=== PATIENT | female | born 1975 | race Caucasian/White ===

== ENCOUNTER → 2017-07-09 | Outpatient (CLI) | payer OTHER ==
[~2017-07-09] MED LIST: Advil200 M1 PO; Cod Liver Oil1 EAC2; Mirena1 EACH VG
[2017-07-11 11:40] LABS: HPV Genotype 16 Not Detected (NOTDET); HPV Genotype 18 Not Detected (NOTDET)
[2017-07-21 10:38] LABS: HPV High Risk Other Not Detected (NOTDET)
== END | disposition home or self-care (01) ==
LOC: LAB 16:28
PROVIDERS: Obstetrics & Gynecology
DX: Z01.419 Encounter for gynecological examination (general) (routine) without abnormal findings (principal)
CPT/HCPCS: 87624; G0123

== ENCOUNTER → 2022-08-19 | Outpatient (CLI) | payer OTHER ==
[2022-08-20 11:09] LABS: HBSAG SCREEN Negative (Negative); HCV AB Non Reactive (Non Reactive); HEP B CORE AB, TOT Negative (Negative)
== END | disposition home or self-care (01) ==
LOC: LAB 16:10 → LAB SHORT 16:10
PROVIDERS: Emergency Medicine
DX: R17 Unspecified jaundice (principal)
CPT/HCPCS: 86704; 86708; 86803; 87340

== ENCOUNTER → 2022-08-19 | Outpatient (CLI) | payer OTHER ==
[2022-08-19 12:33] LABS: BASOPHILS ABSOLUTE AUTO 0.05 K/mm3 (0.00-0.23); BASOPHILS PERCENT AUTO 1 % (0-2); EOSINOPHILS PERCENT AUTO 3 % (0-6); Hematocrit 43.1 % (33.0-51.0); Hemoglobin 14.7 g/dL (11.5-16.0); IMMATURE GRAN ABSOLUTE AUTO 0.02 K/mm3 (0.00-0.10); IMMATURE GRAN PERCENT AUTO 1 % (0-1); LYMPHOCYTES ABSOLUTE AUTO 1.22 K/mm3 (0.84-5.20); LYMPHOCYTES PERCENT AUTO 33 % (21-46); MONOCYTES ABSOLUTE AUTO 0.26 K/mm3 (0.16-1.47); MONOCYTES PERCENT AUTO 7 % (4-13); Mean Corpuscular HGB 29.3 pg (26.0-34.0); Mean Corpuscular HGB Conc 34.1 g/dL (31.5-36.5); Mean Corpuscular Volume 86 fL (80-100); Mean Platelet Volume 10.6 fL (9.1-12.4); NEUTROPHILS ABSOLUTE AUTO 2.09 K/mm3 (1.96-9.15); NEUTROPHILS PERCENT AUTO 56 % (41-73); Platelet Count 185 K/mm3 (150-400); RDW Coefficient Variation 12.5 % (11.7-14.2); Red Blood Cell Count 5.01 M/mm3 (3.80-5.20); White Blood Cell Count 3.74 K/mm3 (4.00-11.30)
[2022-08-19 12:46] LABS: Albumin, Blood 4.5 g/dL (3.4-5.0); Albumin/Globulin Ratio 1.1 (0.8-1.8); Bilirubin, Total 1.9 mg/dL (0.1-1.0); Bun/Creatinine Ratio 14.5 (12.0-20.0); Calcium, Blood 9.8 mg/dL (8.5-10.1); Creatinine, Blood 1.1 mg/dL (0.40-1.00); Globulin, Blood 4.1 g/dL (2.2-4.0); Potassium, Blood 4.2 mmol/L (3.5-5.5); Total Protein, Blood 8.6 g/dL (6.4-8.2)
== END | disposition home or self-care (01) ==
LOC: LAB 12:29 → LAB SHORT 12:29
PROVIDERS: Emergency Medicine
DX: R17 Unspecified jaundice (principal); R10.9 Unspecified abdominal pain
CPT/HCPCS: 80053; 83690; 85025; G0480

== ENCOUNTER → 2025-01-10 | Outpatient (CLI) | payer OTHER ==
[2025-01-10 09:57] LABS: BASOPHILS ABSOLUTE AUTO 0.05 K/mm3 (0.00-0.23); BASOPHILS PERCENT AUTO 2 % (0-2); EOSINOPHILS ABSOLUTE AUTO 0.09 K/mm3 (0.00-0.68); EOSINOPHILS PERCENT AUTO 3 % (0-6); Hematocrit 41.5 % (33.0-51.0); Hemoglobin 13.9 g/dL (11.5-16.0); IMMATURE GRAN ABSOLUTE AUTO 0.01 K/mm3 (0.00-0.10); IMMATURE GRAN PERCENT AUTO 0 % (0-1); LYMPHOCYTES ABSOLUTE AUTO 1.24 K/mm3 (0.84-5.20); LYMPHOCYTES PERCENT AUTO 42 % (21-46); MONOCYTES ABSOLUTE AUTO 0.25 K/mm3 (0.16-1.47); MONOCYTES PERCENT AUTO 9 % (4-13); Mean Corpuscular HGB Conc 33.5 g/dL (31.5-36.5); Mean Corpuscular Volume 87 fL (80-100); NEUTROPHILS ABSOLUTE AUTO 1.31 K/mm3 (1.96-9.15); NEUTROPHILS PERCENT AUTO 44 % (41-73); NRBC ABSOLUTE 0.00 K/mm3 (0.00-0.02); NRBC Auto 0.0 /100 WBC (0.0-0.2); Platelet Count 155 K/mm3 (150-400); RDW Coefficient Variation 13.1 % (11.7-14.2); RDW Standard Deviation 41.7 fL (35.1-46.3)
[2025-01-10 10:04] LABS: Alanine Aminotransfer (ALT/SGP 31.0 U/L (12-78); Albumin, Blood 4.4 g/dL (3.4-5.0); Albumin/Globulin Ratio 1.2 (0.8-1.8); Anion Gap 12.0 mmol/L (3-11); Aspartate Aminotrans (AST/SGOT 29.0 U/L (12-37); Bilirubin, Total 1.4 mg/dL (0.1-1.0); Blood Urea Nitrogen 14.0 mg/dL (8-24); CO2, Blood 30.0 mmol/L (21-32); Calcium, Blood 9.7 mg/dL (8.5-10.1); Chloride, Blood 103.0 mmol/L (98-108); Creatinine, Blood 1.16 mg/dL (0.40-1.00); Globulin, Blood 3.7 g/dL (2.2-4.0); Glucose, Blood 100.0 mg/dL (70-99); Potassium, Blood 4.1 mmol/L (3.5-5.5); Sodium, Blood 141.0 mmol/L (136-145); Total Protein, Blood 8.1 g/dL (6.4-8.2)
== END ==
LOC: LAB 09:46 → LAB SHORT 09:46
PROVIDERS: Physician Assistant
DX: R10.9 Unspecified abdominal pain (principal)
CPT/HCPCS: 80053; 83690; 85025

== ENCOUNTER → 2025-01-11 | Outpatient (CLI) | payer OTHER | LOC: LAB SHORT 16:23 → LAB 16:23 | DX: R10.9 Unspecified abdominal pain (principal) | CPT/HCPCS: 87338 ==

== ENCOUNTER 2025-02-15 12:35 | Day surgery (SDC) | payer OTHER ==
[~2025-02-15] VITALS: Ht 175.3 cm; Wt 51.1 kg
[2025-02-15] MEDS ORDERED: MICROZIDE12.5 M2 (12:51)
[2025-02-15] MEDS ORDERED: Hydroxyzine HCl25 MG (12:52)
[2025-02-15 14:37] VITALS: BP 103/71
--- NOTE | 2025-02-15 14:39 | NUR ---
02/15/25 1439 ZAC HOWARD 125 CC REMAINING OF LR AT TIME OF IV DC
== END 2025-02-15 14:38 | disposition home or self-care (01) ==
LOC: ORSCSDS 12:35
PROVIDERS: Internal Medicine Gastroenterology
PROC: 0DB58ZX Excision of Esophagus, Via Natural or Artificial Opening Endoscopic, Diagnostic (ICD-10-PCS; principal; 2025-02-15 14:15)
PROC: 0DJD8ZZ Inspection of Lower Intestinal Tract, Via Natural or Artificial Opening Endoscopic (ICD-10-PCS; principal; 2025-02-15 14:15)
PROC: 0DB78ZX Excision of Stomach, Pylorus, Via Natural or Artificial Opening Endoscopic, Diagnostic (ICD-10-PCS; principal; 2025-02-15 14:15)
DX: Z12.11 Encounter for screening for malignant neoplasm of colon (principal); R13.10 Dysphagia, unspecified; R10.13 Epigastric pain; K29.70 Gastritis, unspecified, without bleeding; K21.9 Gastro-esophageal reflux disease without esophagitis; Z80.0 Family history of malignant neoplasm of digestive organs; I10 Essential (primary) hypertension; Z79.899 Other long term (current) drug therapy
CPT/HCPCS: 43239; G0121; 88305; 88342; J2704